=== PATIENT | male | born 1955 | race Caucasian/White ===

== ENCOUNTER → 2019-11-17 09:39 | Outpatient (CLI) | payer OTHER, SELFPAY ==
[2013-06-23 21:10] VITALS: BMI 27.8
--- NOTE | 2019-11-17 09:45 | RAD_ITS ---
STUDY: X-RAY - THORACIC SPINE REASON FOR EXAM: Male, 64 years old. MID BACK PAIN AND LIMITED ROM S/P LIFTING HEAVY OBJECT TECHNIQUE: 3 view(s) of the thoracic spine were obtained. COMPARISON: None. FINDINGS: There is an increase in the normal thoracic kyphosis. There is no substantial scoliosis. There is demineralization of the thoracic spine. Minimal loss of height of 2 mid dorsal vertebrae. There is disc space narrowing of the thoracic spine. The soft tissue structures are unremarkable. RAD/Thoracic Spine 3 Views IMPRESSION: Increased kyphosis. Minimal loss of height of 2 mid dorsal vertebrae. Electronically Signed: Khoi Pettit, at 10:38 EDT , Service support ,
== END ==
PROVIDERS: PCP Internal Medicine; Referring Provider Internal Medicine; Visit Provider Internal Medicine
DX: M54.6 Pain in thoracic spine (principal)
CPT/HCPCS: 72072

== ENCOUNTER 2020-08-12 11:10 | Outpatient (RCR) | payer OTHER, SELFPAY ==
[2013-06-23 21:10] VITALS: BMI 27.8
[2020-08-12] MEDS: COVID-19 VACC, MRNA(PFIZER)/PF 30 MCG/0.3 ML SYRINGE IM (12:33)
[2020-09-02] MEDS: COVID-19 VACC, MRNA(PFIZER)/PF 30 MCG/0.3 ML SYRINGE IM (12:28)
== END 2020-11-09 23:59 ==
LOC: IMMUN 11:10
PROVIDERS: PCP Internal Medicine; Referring Provider Family Medicine; Visit Provider Family Medicine
DX: Z23 Encounter for immunization (principal)
CPT/HCPCS: 0001A; 0002A; 91300

== ENCOUNTER 2022-07-03 15:00 | Outpatient (RCR) | payer BC, SELFPAY ==
--- NOTE | 2022-06-27 09:57 | HP.PTEVAL_ITS ---
Patient's Visit Information ELVIA PRUETT is a 66 year old M referred to Physical Therapy by Dr. Becca Arthur DO with a diagnosis of LBP and muscle spasm. Date of Evaluation: 06/27/22 Physical Therapist: EJ Curiel - Visit Plan Frequency: 2x /Week Duration: 4 Weeks Plan: 2X/ week for 4 weeks for LB stretching, neutral spine core stability, postural exercises with HEP for pt to continue with at [facility]. HEP: LTR, SKC, PT and diagram of proper posture. - Subjective Pt reports that he has back pain. He also has a rib injury. He strained his back. His was dying and he had to lift her alot. Leaning over the hospital bed he slipped and hit his rib on the metal rail. Dr suggest PT after she . He is on flexeril especially at night to help him sleep. He has pain lower Lumbar pain and occ gets spasms around the shoulder blades. He has pain mostly on the R side paraspinals. He does not have anything in the center of the back. He feels that it is more muscular. He has no N&T. He has no leg weakness. He has not had any imaging on his back. He has DDD. Just an ache right now but if moves the wrong way it can go up to an 8/10. He sits in a chair at work but does get up every 20 min to stretch. - Pain back pain Pain Intensity (Out of 10): 4 Pain Intensity Range: 8 - Objective Gait: walks with normal gait pattern but his R shoulder is lower than the L and he has a shorter trunk on the R side. Trunk AROM: flexion 75%, Ext 25%, SB R 76% and SB L 50% (with increase stretch pain), Rot R 50% and Rot L 25% with increase stretch pain. Patellar DTR's 2+/3. LE MMT: R hip 16.2 and L hip 16.6. R knee ext 28.7 and L knee ext 21.3. R knee flex 12.7 and L knee flex 11.6. Patella DTR: 2+/3. SLUMP test: - B (stretching of the hamstring). SLR test: + SLR on the L for R sided back pain and - on the R. Increase pain with LTR to the L for R sided stretch pain. Bridges X 10 (increase pain if goes to high). PT..pt felt good with these (struggles with holding his breath. also towards the end he wanted to lift his butt). SKC 5 sec hold X 10 to each side (no pain with this) - Goals Goal 1:: I HEP Goal Time Frame: 4-6 Weeks Goal 2:: Be able to sit at his desk with RTW without having back pain Goal Time Frame: 4-6 Weeks Goal 3:: Sit with upright posture during treatment sessions Goal Time Frame: 4-6 Weeks Goal 4:: No back spasms Goal Time Frame: 4-6 Weeks Goal 5:: Increase trunk AROM in all planes (at time of the eval: Trunk AROM: flexion 75%, Ext 25%, SB R 76% and SB L 50% (with increase stretch pain), Rot R 50% and Rot L 25% with increase stretch pain). - Rehabilitation Potential Rehabilitation Potential: Good - Anticipated Interventions Patient/Client Instruction: Educate patient on: Condition, Plan of Care For the Purpose of:: To decrease pain, To increase ROM, To improve nutrient delivery to tissue, To improve muscle performance and motor function, To improve ability to perform ADL's, To increase tolerance to activity/condition/position, To improve performance and independence with ADL's, To decrease level of supervision to perform tasks, To improve ability of physical actions for home/community/work/leisure, To improve health of tissue, To decrease soft tissue restriction, To increase flexibility/ROM Therapeutic Exercise to Include: Strength training, Body mechanics, Postural tr aining, Flexibilty training, Neuromotor development, Passive ROM, Active ROM, Dynamic Lumbar Stabilization, Scapular Strength/Stabilization For the Purpose of:: To decrease pain, To increase ROM, To improve nutrient delivery to tissue, To improve muscle performance and motor function, To improve ability to perform ADL's, To increase tolerance to activity/condition/position, To improve performance and independence with ADL's, To decrease level of supervision to perform tasks, To improve ability of physical actions for home/community/work/leisure, To improve health of tissue, To decrease soft tissue restriction, To increase flexibility/ROM Functional Training to Include: Gait training For the Purpose of:: To improve gait and locomotor functions Manual Therapy Techniques to Include: Mobilization, Soft tissue mobilization For the Purpose of:: To decrease pain, To increase ROM, To improve nutrient delivery to tissue, To improve muscle performance and motor function, To improve ability to perform ADL's Cryotherapy (ice pack, ice massage): Yes Thermo therapy (hot pack): Yes For the Purpose of:: To decrease pain, To increase ROM, To improve nutrient delivery to tissue, To improve muscle performance and motor function, To improve ability to perform ADL's, To increase tolerance to activity/condition/position Thank you for the opportunity to evaluate your patient. For Medicare and Medicare HMO plans, please review the plan of care and approve it. It will need to be FAXED BACK to us at [phone] for Medicare purposes. For Medicare only, by signing this I certify the plan of care. Please let me know if there are questions or concerns regarding this plan of care. Physician Signature: Date:
--- NOTE | 2022-12-06 15:19 | HP.PT.NRP ---
Patient Information Patient Information: ELVIA PRUETT was seen in my office for initial evaluation on 06/27/22. The following Plan of Care was established for this patient: POC Established Initial Frequency: 2x /Week Initial Duration: 4 Weeks Anticipated Interventions Patient/Client Instruction: Educate patient on: Condition and Plan of Care For the Purpose of:: To decrease pain, To increase ROM, To improve nutrient delivery to tissue, To improve muscle performance and motor function, To improve ability to perform ADL's, To increase tolerance to activity/condition/position, To improve performance and independence with ADL's, To decrease level of supervision to perform tasks, To improve ability of physical actions for home/community/work/leisure, To improve health of tissue, To decrease soft tissue restriction and To increase flexibility/ROM Therapeutic Exercise to Include: Strength training, Body mechanics, Postural training, Flexibilty training, Neuromotor development, Passive ROM, Active ROM, Dynamic Lumbar Stabilization and Scapular Strength/Stabilization For the Purpose of:: To decrease pain, To increase ROM, To improve nutrient delivery to tissue, To improve muscle performance and motor function, To improve ability to perform ADL's, To increase tolerance to activity/condition/position, To improve performance and independence with ADL's, To decrease level of supervision to perform tasks, To improve ability of physical actions for home/community/work/leisure, To improve health of tissue, To decrease soft tissue restriction and To increase flexibility/ROM Functional Training to Include: Gait training For the Purpose of:: To improve gait and locomotor functions Manual Therapy Techniques to Include: Mobilization and Soft tissue mobilization For the Purpose of:: To decrease pain, To increase ROM, To improve nutrient delivery to tissue, To improve muscle performance and motor function and To improve ability to perform ADL's Cryotherapy (ice pack, ice massage): Yes Thermo therapy (hot pack): Yes For the Purpose of:: To decrease pain, To increase ROM, To improve nutrient delivery to tissue, To improve muscle performance and motor function, To improve ability to perform ADL's and To increase tolerance to activity/condition/position Last Seen Last Seen: This patient was last seen in our office 07/03/22. Pertinent comments regarding their Physical therapy will appear below: BEATRICE PT At this point I will be discontinuing this patient from physical therapy. I would be happy to see this patient again in the future if found appropriate by the physician. Thank you! Mary Verdin, MPT Balance/Gait/Functional tests Balance/Special Test Scores Oswestry Low Back Score: 13
== END 2022-07-03 19:00 | disposition home or self-care (01) ==
LOC: PT 15:00
PROVIDERS: PCP Internal Medicine; Referring Provider Internal Medicine; Visit Provider Internal Medicine
DX: M54.50 Low back pain, unspecified (principal); M62.830 Muscle spasm of back
CPT/HCPCS: 97110; 97161

== ENCOUNTER → 2023-04-04 | Outpatient (CLI) | payer BC, SELFPAY ==
[2023-04-04 10:32] LABS: Hematocrit 44.3 % (40-54); Hemoglobin 15.2 g/dL (13.0-16.5); Mean Corp Hgb Conc 34.3 g/dL (32-36); Mean Corpuscular Hgb 34.5 pg (27.0-32.0); Mean Corpuscular Volume 100.5 fL (80-94); Mean Platelet Vol. 10.2 fl (6.2-12.0); Platelet Count 230 K/mm3 (150-450); RBC Distribution Width CV 12.2 % (11.6-14.6); Red Blood Count 4.41 M/mm3 (4.6-6.2); White Blood Count 7.1 K/mm3 (4.4-11.0)
[2023-04-04 10:47] LABS: ALB/GLOB Ratio 1.2 RATIO (0.9-2.4); AST(SGOT) 15 U/L (15-37); Alanine Aminotransfer ALT/SGPT 22 U/L (16-61); Albumin, Serum 3.4 g/dL (3.2-5.0); Alkaline Phosphatase 55 U/L (45-117); Anion Gap 6 (5-15); BUN 11 mg/dL (7-18); BUN/Creat Ratio 10.2 RATIO (10-20); Calcium,Total 9.2 mg/dL (8.5-10.1); Chloride 106 mmol/L (98-107); Creatinine, Serum 1.08 mg/dL (0.70-1.30); EST Glomerular Filtration Rate 73 mL/min (>60); Est Glom Filt Rate - Afr Amer 88 mL/min (>60); Globulin 2.8 g/dL (2.2-4.2); Glucose 111 mg/dL (74-106); Potassium 4.2 mmol/L (3.5-5.1); Protein, Total 6.2 g/dL (6.4-8.2); Sodium Level 143 mmol/L (136-145)
== END | disposition home or self-care (01) ==
LOC: LABSPEC 10:12
PROVIDERS: PCP Internal Medicine; Referring Provider Internal Medicine; Visit Provider Internal Medicine
DX: R53.83 Other fatigue (principal)
CPT/HCPCS: 80053; 85027

== ENCOUNTER → 2023-05-02 | Outpatient (CLI) | payer BC, SELFPAY ==
--- NOTE | 2023-05-02 09:00 | RAD_ITS ---
STUDY: X-RAY - RIGHT FOOT CLINICAL: Male, 67 years old. Pain. TECHNIQUE: 3 view(s) of the foot. COMPARISON: None. FINDINGS: Osteopenia. Normal talus, calcaneus, and tarsal bones. Mild arthrosis of the midfoot. Mild arthrosis of the MTP and IP joints with minimal hammertoe deformities. Soft tissue swelling over the metatarsals. RAD/Foot min 3 Views IMPRESSION: Osteopenia with mild osteoarthritic changes and soft tissue swelling. No acute abnormality or erosive changes. Electronically Signed: Jason Pugh MD at 10:06 EST ,
== END | disposition home or self-care (01) ==
LOC: MTRAD 08:44
PROVIDERS: PCP Internal Medicine; Referring Provider Nurse Practitioner Family; Visit Provider Nurse Practitioner Family
DX: M79.671 Pain in right foot (principal)
CPT/HCPCS: 73630

== ENCOUNTER → 2024-10-23 | Outpatient (CLI) | payer MEDICARE, SELFPAY ==
--- NOTE | 2024-10-23 15:12 | RAD_ITS ---
PROCEDURE: FOOT MIN 3 VIEWS 10/23/2024 REASON FOR EXAM: FOOT INJURY TECHNIQUE: Three views of the right foot COMPARISON: None RAD/Foot min 3 Views IMPRESSION: Mild joint effusion. Moderate soft tissue edema about the ankle. No acute fra cture or dislocations. Reading Location: [id number]
--- NOTE | 2024-10-23 15:12 | RAD_ITS ---
PROCEDURE: ANKLE MIN 3 VIEWS 10/23/2024 REASON FOR EXAM: ANKLE INJURY TECHNIQUE: 3 views of the right ankle COMPARISON: None RAD/Ankle min 3 Views IMPRESSION: Mild joint effusion. Moderate soft tissue edema about the ankle. No acute frac ture or dislocations. Minimal degenerative changes about the ankle. Reading Location: [id number]
== END | disposition home or self-care (01) ==
PROVIDERS: PCP Internal Medicine; Referring Provider Physician Assistant Surgical; Visit Provider Physician Assistant Surgical
DX: S99.911A Unspecified injury of right ankle, initial encounter (principal); S99.921A Unspecified injury of right foot, initial encounter; X58.XXXA Exposure to other specified factors, initial encounter
CPT/HCPCS: 73610; 73630

== ENCOUNTER → 2024-10-30 | Outpatient (CLI) | payer MEDICARE, SELFPAY ==
--- NOTE | 2024-10-30 12:36 | RAD_ITS ---
PROCEDURE: WRIST MIN 3 VIEWS 10/30/2024 REASON FOR EXAM: WRIST INJURY TECHNIQUE: Three views of the right wrist COMPARISON: None FINDINGS: There is a 0.3 cm osteochondral fragment at the ulnar styloid. There is a 0.6 cm corticated osteochondral fragment at the posterior aspect of the distal radioulnar joint on the lateral view. There is cortical irregularity the distal radius, at the distal radioulnar joint, which may represent an old healed injury. There is mild osteoarthritis of the radiocarpal articulation. There is no visible radiopaque foreign body. RAD/Wrist min 3 Views IMPRESSION: There is a 0.3 cm osteochondral fragment at the ulnar styloid. There is a 0.6 cm corticated osteochondral fragment at the posterior aspect of the distal radioulnar joint on the lateral view. There is cortical irregularity the distal radius, at the distal radioulnar join t, which may represent an old healed injury. Further evaluation is indicated if there is clinical suspicion of acute traumat ic injury at the wrist, to exclude an acute component. There is mild osteoarthritis of the radiocarpal articulation. Reading Location: [facility]
--- NOTE | 2024-10-30 12:36 | RAD_ITS ---
PROCEDURE: HAND MIN 3 VIEWS 10/30/2024 REASON FOR EXAM: HAND INJURY TECHNIQUE: Three views of the right hand COMPARISON: None FINDINGS: There is a ring on the 4th digit. Soft tissue swelling is noted of the proximal phalanx of the 4th digit. There is mild osteoarthritis of the interphalangeal joints. No acute fracture or dislocation is seen. Mild osteopenia is noted. RAD/Hand Min 3 Views IMPRESSION: There is a ring on the 4th digit. Soft tissue swelling is noted of the proximal phalanx of the 4th digit. Reading Location: [facility]
== END | disposition home or self-care (01) ==
LOC: MTRAD 12:36
PROVIDERS: PCP Internal Medicine; Referring Provider Physician Assistant Surgical; Visit Provider Physician Assistant Surgical
DX: S69.91XA Unspecified injury of right wrist, hand and finger(s), initial encounter (principal); X58.XXXA Exposure to other specified factors, initial encounter
CPT/HCPCS: 73110; 73130

== ENCOUNTER 2024-12-24 13:18 | Outpatient (RCR) | payer MEDICARE, SELFPAY ==
--- NOTE | 2024-12-24 14:18 | HP.OTEVAL_ITS ---
Patient's Visit Information Visit Information Visit Information: ELVIA PRUETT is a 69 year old M, referred to Occupational Therapy by Dr. Valentin Hightower MD, with a diagnosis of distal ulnar as well as radius fracture. Date of Evaluation: 12/24/24 Occupational Therapist: Jinny Katz Subjective Subjective: This 69 year old male arrives with dx of R fracture of lower end of ulna as well as radius which occurred Oct 29 2024. pt fell while carrying groceries into home on stairs. Pt went to [facility] initially and stated it was dislocated and wore brace and took steriod. Pt stopped wearing brace after 2 weeks. Pt just went to see ortho doctor Campbell who states pt actually had a fracture to radius as well as ulna. Pt is R hand dominant. pt states that wrist extension as well as pushing and pulling has been most difficult. Pt retired at this time. Pain R wrist: Current Pain Intensity: 1 Pain Intensity Range: 8 Objective Objective/Observation: pt arrives no brace no coloration of skin limited in ROM ROM Shoulder: wfl Elbow: wfl Forearm: wfl Wrist: R 45/25 L 60/60 Opposition: wfl ROM Comments: able to supinate wfl able to make full composite fist Strength Highway Maintenance Technician: R 60# L 95# Lateral Pinch: R 25# L 25# Tripod Pinch: R 20# L 20# Edema Wrist: R 19 cm L 18.5 cm Sensation Sensation Comments: denies numbness or tingling Quick DASH-Disab of Arm,Shoulder& Hand Quick DASH Score: 38.6350 Goals Goal:ROM equal to unaffected hand: Yes Goal:Highway Maintenance Technician/Pinch strength at least 75% of unaffected hand: Yes Goal:No pain with affected hand use: Yes Goal:Full use of affected hand in daily activities including work: Yes Comment: quick dash Other Goal: pt will improve quick dash score by 10 points or more (38.63) in order to maximize I in day to day tasks pt will verbalize/demonstrate 100% accuracy in bracing options for comfort for day to day tasks Rehabilitation General Assessment: This 69 year old male arrives with dx of distal ulna and radius fracture. pt presents with limitations in wrist ROM as well as swelling and pain. pt with decrease in strength as wel as limited ability to perform day to day functional tasks. pt would benefit from OT services 4 sessions in 3 months in order to improve above impairments and provide ed and training in HEP as well as joint protection and positioning. Rehabilitation Potential: Good Anticipated Interventions Anticipated Interventions: A/AAROM/PROM, Strengthening, Edema Control, Triggerpoint Release, Modalities, Joint Protection/Energy Conservation, Education re Diagnosis and Home Program Visit Plan Frequency: 4 sessions Duration: 3 Months General Plan: AROM/AAROM/PROM strengthening bracing TEXT: Thank you for the opportunity to evaluate your patient. For Medicare and Medicare HMO plans, please review the plan of care and approve it. It will need to be FAXED BACK to us at [phone] for Medicare purposes. Please let me know if there are questions or concerns regarding this plan of care. Physician Signature: Date:
--- NOTE | 2025-04-22 17:10 | HP.OT.NRP ---
Patient Information Patient Information: ELVIA PRUETT was seen in my office for initial evaluation on 12/24/24. The following Plan of Care was established for this patient: POC Established Initial Frequency: 4 sessions Initial Duration: 3 Months Anticipated Interventions Anticipated Interventions: A/AAROM/PROM, Strengthening, Edema Control, Triggerpoint Release, Modalities, Joint Protection/Energy Conservation, Education re Diagnosis and Home Program Last Seen Last Seen: This patient was last seen in our office 12/24/24. Pertinent comments regarding their Occupational therapy will appear below: Pt seen initially for evaluation with POC created however no additional visits scheduled by pt. discharge from OT caseload due to lapse in time of services. At this point I will be discontinuing this patient from occupational therapy. I would be happy to see this patient again in the future if found appropriate by the physician. Thank you! Jinny Katz
== END 2024-12-24 19:00 | disposition home or self-care (01) ==
LOC: OT 13:18
PROVIDERS: PCP Internal Medicine; Referring Provider Orthopaedic Surgery Sports Medicine; Visit Provider Orthopaedic Surgery Sports Medicine
DX: S52.691D Other fracture of lower end of right ulna, subsequent encounter for closed fracture with routine healing (principal); M25.531 Pain in right wrist
CPT/HCPCS: 97165; 97530